=== PATIENT | female | born 1945 | race Caucasian/White ===

== ENCOUNTER 2020-11-24 23:45 | Inpatient (IN) | payer MEDICARE, BC ==
[2020-11-24] MEDS ORDERED: Sodium Chloride 0.9% 10 ML Syringe FLUSH PRN (23:55)
[2020-11-24] MEDS ORDERED: Sodium Chloride 0.9% 1,000 ML IV ONE (23:55)
[2020-11-24] MEDS ORDERED: Albuterol/Ipratropium 3.0-0.5 MG/3 ML Neb Soln NEB ONE (23:58)
[2020-11-24] MEDS ORDERED: Dexamethasone 10 MG/ML SDV IVPUSH ONE (23:58)
[2020-11-24] MEDS ORDERED: Acetaminophen 500 MG Tab PO ONE (23:59)
--- NOTE | 2020-11-25 00:19 | EDM.PDOC ---
ED HPI GENERAL MEDICAL PROBLEM - General Chief Complaint: Respiratory Problem Stated Complaint: SHORTNESS OF BREATH Time Seen by Provider: 11/24/20 23:45 Source of Information: Reports: EMS, Family History Limitations: Reports: Respiratory Distress - History of Present Illness INITIAL COMMENTS - FREE TEXT/NARRATIVE: 75 YO WF PRESENTS TO ER BY EMS IN RESPIRATORY DISTRESS. PT WAS DIAGNOSED WITH COVID-19 10 DAYS AGO AND SINCE THAT TIME SHE HAS BEEN MOSTLY SLEEPING AND COUGHING PER BOYFRIEND. PT HASN'T BEEN EATING OR DRINKING MUCH OVER THIS PERIOD OF TIME. PT WITH SAO2 74% UPON ARRIVAL TO ER ON 10L O2. PT REPORTS SHE DOES NOT WANT ANY CARDIOPULMONARY RESUSCITATION. PT STATES SHE HAS A LIVING WILL AND SHE DOES NOT WANT INTUBATION OR ANY ARTIFICIAL MEAN TO PROLONG HER LIFE. ATTEMPTED CPAP BUT PATIENT COULDN'T TOLERATE SO NRB @15L WAS INITIATED. PT WAS GIVEN DUONEB X2, DECADRON 6MG IV, AND TYLENOL 1000MG PO. PT WAS NOT VACCINATED AND DID NOT RECEIVE MONOCLONAL THERAPY AFTER HER DIAGNOSIS OF COVID. Duration: Day(s): (10), Getting Worse Associated Symptoms: Reports: Fever/Chills, Shortness of Breath, Syncope, Weakness - Related Data Allergies Allergy/AdvReac Type Severity Reaction Status Date / Time codeine Allergy UNKNOWN Verified 11/25/20 00:17 diazepam [From Valium] Allergy Hyperactivi Verified 11/25/20 00:17 ty hydrocodone bitartrate Allergy Difficulty Verified 11/25/20 00:17 [From Vicodin] Breathing morphine Allergy Cannot Verified 11/25/20 00:17 Remember propoxyphene HCl Allergy UNKNOWN Verified 11/25/20 00:17 [From Darvon] Home Meds: Home Meds Acetaminophen [Tylenol] 650 mg PO Q6HR PRN 02/16/13 [History] Aspirin [Halfprin] 81 mg PO ASDIRECTED 02/16/13 [History] Calcium Carbonate/Vitamin D3 [Calcium 500-Vit D3 200 Caplet] 1 each PO BEDTIME 02/16/13 [History] Levothyroxine Sodium [Synthroid] 125 mcg PO QAM 02/16/13 [History] Lisinopril 20 mg PO QPM 02/16/13 [History] Multivitamin [Multi-Vitamin Daily] 1 each PO BEDTIME 02/16/13 [History] Omeprazole [Prilosec] 20 mg PO QPM 02/16/13 [History] amLODIPine [Norvasc] 5 mg PO QAM 02/16/13 [History] Past Medical History HEENT History: Reports: Cataract, Impaired Vision Cardiovascular History: Reports: Heart Murmur, Hypertension, [place] Respiratory History: Reports: None Gastrointestinal History: Reports: GERD Neurological History: Reports: CVA Psychiatric History: Reports: None Endocrine/Metabolic History: Reports: Hypothyroidism Social & Family History - Caffeine Use Caffeine Use: Reports: Coffee, Soda ED ROS GENERAL - Review of Systems Review Of Systems: Comprehensive ROS is negative, except as noted in HPI. Constitutional: Reports: Fever, Chills, Weakness Respiratory: Reports: Shortness of Breath, Cough Cardiovascular: Reports: Dyspnea on Exertion, Edema, Lightheadedness, Orthopnea, PND, Syncope GI/Abdominal: Reports: No Symptoms Neurological: Reports: Weakness ED EXAM, GENERAL - Physical Exam Exam: See Below Exam Limited By: Respiratory Distress General Appearance: Alert, Anxious, Severe Distress, Obese Head: Atraumatic, Normocephalic Neck: Normal Inspection, Supple, Non-Tender, Full Range of Motion Respiratory/Chest: Respiratory Distress, Decreased Breath Sounds, Rhonchi, Accessory Muscle Use, Retractions, Splinting Cardiovascular: Normal Peripheral Pulses, Regular Rate, Rhythm, No Edema, No Gallop, No JVD, No Murmur, No Rub GI/Abdominal: Normal Bowel Sounds, Soft, Non-Tender, No Organomegaly, No Distention, No Mass Extremities: Normal Inspection, Normal Range of Motion, Non-Tender, Normal Capillary Refill, Pedal Edema, Leg Pain, Redness Neurological: Alert, Normal Cognition, No Motor/Sensory Deficits Course - Vital Signs Last Recorded V/S: Last Vital Signs Temp 98.5 F 11/25/20 01:06 Pulse 96 11/25/20 01:02 Resp 44 H 11/25/20 01:02 BP 89/51 L 11/25/20 01:02 Pulse Ox 77 L 11/25/20 01:02 - Orders/Labs/Meds Orders: Active Orders 24 hr Category Date Time Status Patient Status Manage Transfer [TRANSFER] Routine ADT 11/25/20 01:05 Active Patient Status [ADT] Routine ADT 11/25/20 01:06 Active Bedrest Bedside Commode [RC] ASDIRECTED Care 11/25/20 01:06 Active Blood Pressure Mgt: Sepsis [RC] Q15MX2 Care 11/24/20 23:55 Active Cardiac Monitoring [RC] CONTINUOUS Care 11/24/20 23:56 Active Insert Gage Catheter [Insert Urinary Catheter] [OM.PC] Care 11/25/20 00:45 Ordered Q24H Overnight Pulse Oximetry [RC] Click to Edit Care 11/24/20 23:56 Active Oxygen Therapy [RC] PRN Care 11/25/20 01:06 Active Oxygen Therapy, ED [RC] STAT Care 11/24/20 23:56 Active Pulse Oximetry [RC] CONTINUOUS Care 11/25/20 01:07 Active RT Aerosol Therapy [RC] ASDIRECTED Care 11/24/20 23:58 Active Urinary Catheter Assessment [RC] ASDIRECTED Care 11/25/20 00:40 Active VTE/DVT Education [RC] PER UNIT ROUTINE Care 11/25/20 01:06 Active Vital Signs [RC] Q4H Care 11/25/20 01:06 Active Nothing per Oral Now Diet [DIET] Diet 11/25/20 Breakfast Active Chest 1V Frontal [CR] Stat Exams 11/24/20 23:55 Ordered CULTURE BLOOD [BC] Stat Lab 11/24/20 23:55 Received Acetaminophen [Tylenol] Med 11/25/20 01:06 Ordered 650 mg RECTAL Q4H PRN Dextrose 5%-1/2 Normal Saline @ 125 MLS/HR(1000ml) Med 11/25/20 01:15 Ordered Dextrose 5%-0.45% NaCl [Dextrose 5%-1/2 NS] 1,000 ml IV ASDIRECTED LORazepam [Ativan] Med 11/25/20 01:06 Ordered 1 mg IV Q1H PRN Sodium Chloride 0.9% [Normal Saline] 1,000 ml Med 11/25/20 00:53 Active IV ASDIRECTED Sodium Chloride 0.9% [Saline Flush] Med 11/24/20 23:55 Active 10 ml FLUSH Q8HR PRN Blood Culture x2 Reflex Set [OM.PC] Stat Oth 11/24/20 23:55 Ordered Isolation [COMM] Routine Oth 11/25/20 00:18 Ordered Pulse Oximetry Continuous Monitoring [OM.PC] Routine Oth 11/24/20 23:55 Ordered Saline Lock Insert [OM.PC] Stat Oth 11/24/20 23:55 Ordered Severe Sepsis Onset Time [OM.PC] Stat Oth 11/24/20 23:55 Ordered Resuscitation Status Routine Resus Stat 11/25/20 01:06 Ordered EKG 12 Lead [EK] Stat Ther 11/24/20 23:55 Ordered Medication Orders Acetaminophen (Acetaminophen 650 Mg Supp) 650 mg RECTAL Q4H PRN PRN Reason: Pain (mild 1-3) Sodium Chloride (Normal Saline) 1,000 mls @ 150 mls/hr IV ASDIRECTED ONE Stop: 11/25/20 07:27 Last Admin: 11/25/20 01:00 Dose: 150 mls/hr Documented by: JUAN MIGUEL Dextrose/Sodium Chloride (Dextrose 5%-1/2 Ns) 1,000 mls @ 125 mls/hr IV ASDIR ECTED AIDE Lorazepam (Lorazepam 2 Mg/Ml Sdv) 1 mg IV Q1H PRN PRN Reason: Nausea/Vomiting Sodium Chloride (Sodium Chloride 0.9% 10 Ml Syringe) 10 ml FLUSH Q8HR PRN PRN Reason: keep vein open Labs: Laboratory Tests 11/25/20 11/25/20 11/25/20 Range/Units 00:10 00:10 00:10 WBC 9.90 (5.00-10.00) 10^3/uL RBC 3.54 L (3.80-5.50) 10^6/uL Hgb 10.7 L (12.0-16.0) g/dL Hct 33.4 L (37.0-47.0) % MCV 94.4 H D (82.0-92.0) fL MCH 30.2 (27.0-31.0) pg MCHC 32.0 (32.0-36.0) g/dL RDW 12.7 (11.5-14.5) % Plt Count 378 (150-400) 10^3/uL MPV 8.9 (7.4-10.4) fL Add Manual Diff Yes Neutrophils % (Manual) 69 (50-70) % Band Neutrophils % 1 L (4-12) % Lymphocytes % (Manual) 21 (20-40) % Atypical Lymphs % 9 Platelet Estimate Increased D-Dimer, Quantitative (<400) ng/mL Sodium 141 (136-145) mmol/L Potassium 4.8 (3.5-5.1) mmol/L Chloride 104 (98-107) mmol/L Carbon Dioxide 22.0 (21.0-32.0) mmol/L Anion Gap 19.8 H (5-15) mmol/L BUN 63 H* (7-18) mg/dL Creatinine 2.67 H (0.51-1.17) mg/dL Est Cr Clr Drug Dosing 13.53 mL/min Estimated GFR (MDRD) 17 mL/min Glucose 125 (70-140) mg/dL Lactic Acid 1.4 (0.4-2.0) mmol/L Calcium 8.7 (8.7-10.3) mg/dL Total Bilirubin 0.7 (0.2-1.0) mg/dL AST 106 H (15-37) U/L ALT 56 (14-63) U/L Alkaline Phosphatase 122 H (46-116) U/L Troponin I High Sens 27.000 (0-51.000) pg/mL B-Natriuretic Peptide 105 H (0-100) pg/mL Total Protein 7.7 (6.4-8.2) g/dL Albumin 2.66 L (3.40-5.00) g/dL Specimen Type Urine Color (YELLOW) Urine Appearance (CLEAR) Urine pH (5.0-9.0) Ur Specific Converse (1.005-1.030) Urine Protein (NEGATIVE) mg/dL Urine Glucose (UA) (NEGATIVE) mg/dL Urine Ketones (NEGATIVE) mg/dL Urine Occult Blood (NEGATIVE) Urine Nitrite (NEGATIVE) Urine Bilirubin (NEGATIVE) Urine Urobilinogen (0.2-1.0) E.U./dL Ur Leukocyte Esterase (NEGATIVE) Urine RBC (0-5) /HPF Urine WBC (0-5) /HPF Ur Epithelial Cells /LPF Amorphous Sediment (0/HPF) /HPF Urine Bacteria (NONE TO FEW) /HPF Granular Casts (Auto) Urine Mucus (NEGATIVE) /LPF 11/25/20 11/25/20 Range/Units 00:10 00:40 WBC (5.00-10.00) 10^3/uL RBC (3.80-5.50) 10^6/uL Hgb (12.0-16.0) g/dL Hct (37.0-47.0) % MCV (82.0-92.0) fL MCH (27.0-31.0) pg MCHC (32.0-36.0) g/dL RDW (11.5-14.5) % Plt Count (150-400) 10^3/uL MPV (7.4-10.4) fL Add Manual Diff Neutrophils % (Manual) (50-70) % Band Neutrophils % (4-12) % Lymphocytes % (Manual) (20-40) % Atypical Lymphs % Platelet Estimate D-Dimer, Quantitative 2530 H (<400) ng/mL Sodium (136-145) mmol/L Potassium (3.5-5.1) mmol/L Chloride (98-107) mmol/L Carbon Dioxide (21.0-32.0) mmol/L Anion Gap (5-15) mmol/L BUN (7-18) mg/dL Creatinine (0.51-1.17) mg/dL Est Cr Clr Drug Dosing mL/min Estimated GFR (MDRD) mL/min Glucose (70-140) mg/dL Lactic Acid (0.4-2.0) mmol/L Calcium (8.7-10.3) mg/dL Total Bilirubin (0.2-1.0) mg/dL AST (15-37) U/L ALT (14-63) U/L Alkaline Phosphatase (46-116) U/L Troponin I High Sens (0-51.000) pg/mL B-Natriuretic Peptide (0-100) pg/mL Total Protein (6.4-8.2) g/dL Albumin (3.40-5.00) g/dL Specimen Type Urincath Urine Color Yellow (YELLOW) Urine Appearance Cloudy H (CLEAR) Urine pH 5.0 (5.0-9.0) Ur Specific Converse 1.025 (1.005-1.030) Urine Protein 100 H (NEGATIVE) mg/dL Urine Glucose (UA) Negative (NEGATIVE) mg/dL Urine Ketones Negative (NEGATIVE) mg/dL Urine Occult Blood Small H (NEGATIVE) Urine Nitrite Negative (NEGATIVE) Urine Bilirubin Small H (NEGATIVE) Urine Urobilinogen 1.0 (0.2-1.0) E.U./dL Ur Leukocyte Esterase Negative (NEGATIVE) Urine RBC 0-5 (0-5) /HPF Urine WBC 0-5 (0-5) /HPF Ur Epithelial Cells Moderate H /LPF Amorphous Sediment Few (0/HPF) /HPF Urine Bacteria Rare (NONE TO FEW) /HPF Granular Casts (Auto) Occasional Urine Mucus Rare H (NEGATIVE) /LPF Meds: Medications Generic Name Dose Route Start Last Admin Trade Name Henrry PRN Reason Stop Dose Admin Acetaminophen 650 mg 11/25/20 01:06 Acetaminophen 650 Mg Supp RECTAL Q4H PRN Pain (mild 1-3) Sodium Chloride 1,000 mls @ 150 mls/hr 11/25/20 00:53 11/25/20 01:00 Normal Saline IV 11/25/20 07:27 150 mls/hr ASDIRECTED ONE Administration Dextrose/Sodium Chloride 1,000 mls @ 125 mls/hr 11/25/20 01:15 Dextrose 5%-1/2 Ns IV ASDIRECTED AIDE Lorazepam 1 mg 11/25/20 01:06 Lorazepam 2 Mg/Ml Sdv IV Q1H PRN Nausea/Vomiting Sodium Chloride 10 ml 11/24/20 23:55 Sodium Chloride 0.9% 10 Ml Syringe FLUSH Q8HR PRN keep vein open Discontinued Medications Generic Name Dose Route Start Last Admin Trade Name Henrry PRN Reason Stop Dose Admin Acetaminophen 1,000 mg 11/24/20 23:59 11/25/20 00:05 Acetaminophen 500 Mg Tab PO 11/25/20 00:00 500 mg ONETIME ONE Administration Acetaminophen 500 mg 11/25/20 00:42 11/25/20 00:44 Acetaminophen 500 Mg Tab PO 11/25/20 00:43 500 mg ONETIME ONE Administration Albuterol/Ipratropium 3 ml 11/24/20 23:58 11/24/20 23:50 Albuterol/Ipratropium 3.0-0.5 Mg/3 Ml Neb Soln NEB 11/24/20 23:59 3 ml ONETIME ONE Administration Albuterol/Ipratropium 3 ml 11/25/20 01:06 Albuterol/Ipratropium 3.0-0.5 Mg/3 Ml Neb Soln NEB Q4H PRN Shortness Of Breath/wheezing Dexamethasone 6 mg 11/24/20 23:58 11/25/20 00:05 Dexamethasone 10 Mg/Ml Sdv IVPUSH 11/24/20 23:59 6 mg ONETIME ONE Administration Sodium Chloride 1,000 mls @ 1,000 mls/hr 11/24/20 23:55 11/25/20 00:52 Normal Saline IV 11/25/20 00:54 Not Given BOLUS ONE Protocol Sodium Chloride 1,000 mls @ 999 mls/hr 11/25/20 00:48 11/25/20 00:53 Normal Saline IV 11/25/20 01:48 Not Given .BOLUS ONE Lorazepam 1 mg 11/25/20 00:53 11/25/20 01:00 Lorazepam 2 Mg/Ml Sdv IVPUSH 11/25/20 00:54 1 mg ONETIME ONE Administration - Radiology Interpretation Free Text/Narrative:: CXR- MULTIFOCAL BILATERAL PNEUMONIA - Re-Assessments/Exams Free Text/Narrative Re-Assessment/Exam: 11/25/20 01:02 PT ASKED TO GO HOME MULTIPLE TIMES. PT'S BOYFRIEND OF 23 YEARS (KAIT) WAS AT BEDSIDE. PT AND SPOUSE UNDERSTAND SHE NEEDS TO REMAIN IN HOSPITAL FOR COMFORT CARE. WILL ADMIT TO MEDICINE FOR PALLIATIVE CARE AND COMFORT ONLY MEASURES Departure - Departure Time of Disposition: 01:03 Disposition: Admitted As Inpatient 65 Condition: Critical Clinical Impression: Pneumonia due to COVID-19 virus Respiratory failure Qualifiers: Chronicity: acute Respiratory failure complication: hypoxia Qualified Code(s): J96.01 - Acute respiratory failure with hypoxia - Discharge Information Referrals: Fuentes Cisse PA [Primary Care Provider] - Forms: ED Department Discharge Sepsis Event Note (ED) - Focused Exam Vital Signs: Vital Signs Temp Temp Pulse Resp BP Pulse Ox Pulse Ox 11/25/20 01:06 98.5 F 11/25/20 01:02 96 44 H 89/51 L 77 L 11/25/20 00:47 89 39 H 105/49 L 75 L 71 L 11/25/20 00:35 98.5 F 11/25/20 00:30 90 44 H 120/91 H 70 L 11/25/20 00:15 96 40 H 123/48 L 68 L 11/25/20 00:05 72 L 11/25/20 00:00 93 43 H 118/54 L 74 L 11/24/20 23:45 100.2 F 99 40 H 149/72 H 68 L - My Orders Last 24 Hours: My Active Orders 11/24/20 23:55 Blood Pressure Mgt: Sepsis [RC] Q15MX2 Chest 1V Frontal [CR] Stat CULTURE BLOOD [BC] Stat Sodium Chloride 0.9% [Saline Flush] 10 ml FLUSH Q8HR PRN Blood Culture x2 Reflex Set [OM.PC] Stat Pulse Oximetry Continuous Monitoring [OM.PC] Routine Saline Lock Insert [OM.PC] Stat Severe Sepsis Onset Time [OM.PC] Stat EKG 12 Lead [EK] Stat 11/24/20 23:56 Cardiac Monitoring [RC] CONTINUOUS Overnight Pulse Oximetry [RC] Click to Edit Oxygen Therapy, ED [RC] STAT 11/24/20 23:58 RT Aerosol Therapy [RC] ASDIRECTED 11/25/20 00:18 Isolation [COMM] Routine 11/25/20 00:40 Urinary Catheter Assessment [RC] ASDIRECTED 11/25/20 00:45 Insert Gage Catheter [Insert Urinary Catheter] [OM.PC] Q24H 11/25/20 00:53 Sodium Chloride 0.9% [Normal Saline] 1,000 ml IV ASDIRECTED 11/25/20 01:05 Patient Status Manage Transfer [TRANSFER] Routine 11/25/20 01:06 Patient Status [ADT] Routine Bedrest Bedside Commode [RC] ASDIRECTED Oxygen Therapy [RC] PRN VTE/DVT Education [RC] PER UNIT ROUTINE Vital Signs [RC] Q4H Acetaminophen [Tylenol] 650 mg RECTAL Q4H PRN LORazepam [Ativan] 1 mg IV Q1H PRN Resuscitation Status Routine 11/25/20 01:07 Pulse Oximetry [RC] CONTINUOUS 11/25/20 01:15 Dextrose 5%-1/2 Normal Saline @ 125 MLS/HR(1000ml) Dextrose 5%-0.45% NaCl [Dextrose 5%-1/2 NS] 1,000 ml IV ASDIRECTED 11/25/20 Breakfast Nothing per Oral Now Diet [DIET] - Assessment/Plan Last 24 Hours: My Active Orders 11/24/20 23:55 Blood Pressure Mgt: Sepsis [RC] Q15MX2 Chest 1V Frontal [CR] Stat CULTURE BLOOD [BC] Stat Sodium Chloride 0.9% [Saline Flush] 10 ml FLUSH Q8HR PRN Blood Culture x2 Reflex Set [OM.PC] Stat Pulse Oximetry Continuous Monitoring [OM.PC] Routine Saline Lock Insert [OM.PC] Stat Severe Sepsis Onset Time [OM.PC] Stat EKG 12 Lead [EK] Stat 11/24/20 23:56 Cardiac Monitoring [RC] CONTINUOUS Overnight Pulse Oximetry [RC] Click to Edit Oxygen Therapy, ED [RC] STAT 11/24/20 23:58 RT Aerosol Therapy [RC] ASDIRECTED 11/25/20 00:18 Isolation [COMM] Routine 11/25/20 00:40 Urinary Catheter Assessment [RC] ASDIRECTED 11/25/20 00:45 Insert Gage Catheter [Insert Urinary Catheter] [OM.PC] Q24H 11/25/20 00:53 Sodium Chloride 0.9% [Normal Saline] 1,000 ml IV ASDIRECTED 11/25/20 01:05 Patient Status Manage Transfer [TRANSFER] Routine 11/25/20 01:06 Patient Status [ADT] Routine Bedrest Bedside Commode [RC] ASDIRECTED Oxygen Therapy [RC] PRN VTE/DVT Education [RC] PER UNIT ROUTINE Vital Signs [RC] Q4H Acetaminophen [Tylenol] 650 mg RECTAL Q4H PRN LORazepam [Ativan] 1 mg IV Q1H PRN Resuscitation Status Routine 11/25/20 01:07 Pulse Oximetry [RC] CONTINUOUS 11/25/20 01:15 Dextrose 5%-1/2 Normal Saline @ 125 MLS/HR(1000ml) Dextrose 5%-0.45% NaCl [Dextrose 5%-1/2 NS] 1,000 ml IV ASDIRECTED 11/25/20 Breakfast Nothing per Oral Now Diet [DIET] Assessment:: 1. RESPIRATORY FAILURE 2. COMFORT/PALLIATIVE CARE 3. DEHYDRATION Plan: 1. ADMIT TO MEDICINE- DR SHERMAN CONLEY @1300 2. PALLIATIVE CARE 3. O2 SUPPORT NRB 15L 4. IVF D51/2NS @125CC/HR 5. ATIVAN FOR COMFORT CARE NEEDED
[2020-11-25 00:35] LABS: ANION GAP 19.8 mmol/L (5-15)
[2020-11-25] MEDS ORDERED: Acetaminophen 500 MG Tab PO ONE (00:42)
[2020-11-25] MEDS ORDERED: Sodium Chloride 0.9% 1,000 ML IV ONE ×2 (00:48→00:53)
[2020-11-25] MEDS ORDERED: LORazepam 2 MG/ML SDV IVPUSH ONE (00:53)
[2020-11-25] MEDS ORDERED: Acetaminophen 650 MG Supp RECTAL PRN (01:06)
[2020-11-25] MEDS ORDERED: Albuterol/Ipratropium 3.0-0.5 MG/3 ML Neb Soln NEB PRN (01:06)
[2020-11-25] MEDS ORDERED: Dextrose 5%-0.45% NaCl 1,000 ML IV SCH (01:15)
[2020-11-25 02:03] VITALS: BP 114/33; PULSE 84
[2020-11-25] MEDS: LORazepam 2 MG/ML SDV IV PRN ×3 (02:05→04:13)
[2020-11-25] MEDS: LORazepam 2 MG/ML SDV IVPUSH PRN ×13 (05:20→23:04)
--- NOTE | 2020-11-25 08:03 | PCM.PN ---
- General Info Date of Service: 11/25/20 Subjective Update: PT IN RESPIRATORY FAILURE WITH SHALLOW BREATHING. 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 PT IS UNRESPONSIVE AND APPEARS COMFORTABLE. FAMILY HAS NO CONCERNS AT THIS TIME. CHILDREN HAVE BEEN NOTIFIED THIS AM AFTER BEING UNABLE TO REACH THEM ALL NIGHT Functional Status: Reports: Pain Controlled - Review of Systems General: Reports: Other (UNRESPONSIVE, UNABLE TO OBTAIN BUT APPEARS IN NAD) - Patient Data Vitals - Most Recent: Last Vital Signs Temp 98.5 F 11/25/20 01:06 Pulse 84 11/25/20 01:30 Resp 35 H 11/25/20 01:30 BP 114/33 L 11/25/20 01:30 Pulse Ox 77 L 11/25/20 01:55 Weight - Most Recent: 250 lb I&O - Last 24 Hours: Intake & Output 11/24/20 11/25/20 11/25/20 22:59 06:59 14:59 Output Total 50 Balance -50 Lab Results Last 24 Hours: Laboratory Results - last 24 hr 11/25/20 11/25/20 11/25/20 Range/Units 00:10 00:10 00:10 WBC 9.90 (5.00-10.00) 10^3/uL RBC 3.54 L (3.80-5.50) 10^6/uL Hgb 10.7 L (12.0-16.0) g/dL Hct 33.4 L (37.0-47.0) % MCV 94.4 H D (82.0-92.0) fL MCH 30.2 (27.0-31.0) pg MCHC 32.0 (32.0-36.0) g/dL RDW 12.7 (11.5-14.5) % Plt Count 378 (150-400) 10^3/uL MPV 8.9 (7.4-10.4) fL Add Manual Diff Yes Neutrophils % (Manual) 69 (50-70) % Band Neutrophils % 1 L (4-12) % Lymphocytes % (Manual) 21 (20-40) % Atypical Lymphs % 9 Platelet Estimate Increased D-Dimer, Quantitative (<400) ng/mL Sodium 141 (136-145) mmol/L Potassium 4.8 (3.5-5.1) mmol/L Chloride 104 (98-107) mmol/L Carbon Dioxide 22.0 (21.0-32.0) mmol/L Anion Gap 19.8 H (5-15) mmol/L BUN 63 H* (7-18) mg/dL Creatinine 2.67 H (0.51-1.17) mg/dL Est Cr Clr Drug Dosing 13.53 mL/min Estimated GFR (MDRD) 17 mL/min Glucose 125 (70-140) mg/dL Lactic Acid 1.4 (0.4-2.0) mmol/L Calcium 8.7 (8.7-10.3) mg/dL Total Bilirubin 0.7 (0.2-1.0) mg/dL AST 106 H (15-37) U/L ALT 56 (14-63) U/L Alkaline Phosphatase 122 H (46-116) U/L Troponin I High Sens 27.000 (0-51.000) pg/mL B-Natriuretic Peptide 105 H (0-100) pg/mL Total Protein 7.7 (6.4-8.2) g/dL Albumin 2.66 L (3.40-5.00) g/dL Specimen Type Urine Color (YELLOW) Urine Appearance (CLEAR) Urine pH (5.0-9.0) Ur Specific Distant (1.005-1.030) Urine Protein (NEGATIVE) mg/dL Urine Glucose (UA) (NEGATIVE) mg/dL Urine Ketones (NEGATIVE) mg/dL Urine Occult Blood (NEGATIVE) Urine Nitrite (NEGATIVE) Urine Bilirubin (NEGATIVE) Urine Urobilinogen (0.2-1.0) E.U./dL Ur Leukocyte Esterase (NEGATIVE) Urine RBC (0-5) /HPF Urine WBC (0-5) /HPF Ur Epithelial Cells /LPF Amorphous Sediment (0/HPF) /HPF Urine Bacteria (NONE TO FEW) /HPF Granular Casts (Auto) Urine Mucus (NEGATIVE) /LPF 11/25/20 11/25/20 Range/Units 00:10 00:40 WBC (5.00-10.00) 10^3/uL RBC (3.80-5.50) 10^6/uL Hgb (12.0-16.0) g/dL Hct (37.0-47.0) % MCV (82.0-92.0) fL MCH (27.0-31.0) pg MCHC (32.0-36.0) g/dL RDW (11.5-14.5) % Plt Count (150-400) 10^3/uL MPV (7.4-10.4) fL Add Manual Diff Neutrophils % (Manual) (50-70) % Band Neutrophils % (4-12) % Lymphocytes % (Manual) (20-40) % Atypical Lymphs % Platelet Estimate D-Dimer, Quantitative 2530 H (<400) ng/mL Sodium (136-145) mmol/L Potassium (3.5-5.1) mmol/L Chloride (98-107) mmol/L Carbon Dioxide (21.0-32.0) mmol/L Anion Gap (5-15) mmol/L BUN (7-18) mg/dL Creatinine (0.51-1.17) mg/dL Est Cr Clr Drug Dosing mL/min Estimated GFR (MDRD) mL/min Glucose (70-140) mg/dL Lactic Acid (0.4-2.0) mmol/L Calcium (8.7-10.3) mg/dL Total Bilirubin (0.2-1.0) mg/dL AST (15-37) U/L ALT (14-63) U/L Alkaline Phosphatase (46-116) U/L Troponin I High Sens (0-51.000) pg/mL B-Natriuretic Peptide (0-100) pg/mL Total Protein (6.4-8.2) g/dL Albumin (3.40-5.00) g/dL Specimen Type Urincath Urine Color Yellow (YELLOW) Urine Appearance Cloudy H (CLEAR) Urine pH 5.0 (5.0-9.0) Ur Specific Distant 1.025 (1.005-1.030) Urine Protein 100 H (NEGATIVE) mg/dL Urine Glucose (UA) Negative (NEGATIVE) mg/dL Urine Ketones Negative (NEGATIVE) mg/dL Urine Occult Blood Small H (NEGATIVE) Urine Nitrite Negative (NEGATIVE) Urine Bilirubin Small H (NEGATIVE) Urine Urobilinogen 1.0 (0.2-1.0) E.U./dL Ur Leukocyte Esterase Negative (NEGATIVE) Urine RBC 0-5 (0-5) /HPF Urine WBC 0-5 (0-5) /HPF Ur Epithelial Cells Moderate H /LPF Amorphous Sediment Few (0/HPF) /HPF Urine Bacteria Rare (NONE TO FEW) /HPF Granular Casts (Auto) Occasional Urine Mucus Rare H (NEGATIVE) /LPF Med Orders - Current: Current Medications Acetaminophen (Acetaminophen 650 Mg Supp) 650 mg RECTAL Q4H PRN PRN Reason: Pain (mild 1-3) Lorazepam (Lorazepam 2 Mg/Ml Sdv) 2 mg IVPUSH Q1H PRN PRN Reason: Other Last Admin: 11/25/20 06:28 Dose: 2 mg Documented by: Discontinued Medications Acetaminophen (Acetaminophen 500 Mg Tab) 1,000 mg PO ONETIME ONE Stop: 11/25/20 00:00 Last Admin: 11/25/20 00:05 Dose: 500 mg Documented by: Acetaminophen (Acetaminophen 500 Mg Tab) 500 mg PO ONETIME ONE Stop: 11/25/20 00:43 Last Admin: 11/25/20 00:44 Dose: 500 mg Documented by: Albuterol/Ipratropium (Albuterol/Ipratropium 3.0-0.5 Mg/3 Ml Neb Soln) 3 ml NEB ONETIME ONE Stop: 11/24/20 23:59 Last Admin: 11/24/20 23:50 Dose: 3 ml Documented by: Albuterol/Ipratropium (Albuterol/Ipratropium 3.0-0.5 Mg/3 Ml Neb Soln) 3 ml NEB Q4H PRN PRN Reason: Shortness Of Breath/wheezing Dexamethasone (Dexamethasone 10 Mg/Ml Sdv) 6 mg IVPUSH ONETIME ONE Stop: 11/24/20 23:59 Last Admin: 11/25/20 00:05 Dose: 6 mg Documented by: Sodium Chloride (Normal Saline) 1,000 mls @ 1,000 mls/hr IV BOLUS ONE; Protocol Stop: 11/25/20 00:54 Last Admin: 11/25/20 00:52 Dose: Not Given Documented by: Sodium Chloride (Normal Saline) 1,000 mls @ 999 mls/hr IV .BOLUS ONE Stop: 11/25/20 01:48 Last Admin: 11/25/20 00:53 Dose: Not Given Documented by: Sodium Chloride (Normal Saline) 1,000 mls @ 150 mls/hr IV ASDIRECTED ONE Stop: 11/25/20 07:27 Last Infusion: 11/25/20 01:15 Dose: 500 mls/hr Documented by: Dextrose/Sodium Chloride (Dextrose 5%-1/2 Ns) 1,000 mls @ 125 mls/hr IV ASDIRECTED AIDE Last Admin: 11/25/20 03:08 Dose: 125 mls/hr Documented by: Lorazepam (Lorazepam 2 Mg/Ml Sdv) 1 mg IVPUSH ONETIME ONE Stop: 11/25/20 00:54 Last Admin: 11/25/20 01:00 Dose: 1 mg Documented by: Lorazepam (Lorazepam 2 Mg/Ml Sdv) 1 mg IV Q1H PRN PRN Reason: Nausea/Vomiting Last Admin: 11/25/20 04:13 Dose: 1 mg Documented by: Sodium Chloride (Sodium Chloride 0.9% 10 Ml Syringe) 10 ml FLUSH Q8HR PRN PRN Reason: keep vein open - Exam Quality Assessment: Supplemental Oxygen Urinary Catheter Total Time: 0Days 0Hours General: Obtunded HEENT: Pupils Equal Neck: Supple Lungs: Other (RESPIRATORY FAILURE) Cardiovascular: Regular Rate, Regular Rhythm GI/Abdominal Exam: Normal Bowel Sounds, Soft, No Organomegaly, No Distention, No Mass, Pelvis Stable Skin: Warm, Intact, Moist Neurological: Other (OBTUNDED IN NAD) - Patient Data Lab Results Last 24 hrs: Laboratory Results - last 24 hr 11/25/20 11/25/20 11/25/20 Range/Units 00:10 00:10 00:10 WBC 9.90 (5.00-10.00) 10^3/uL RBC 3.54 L (3.80-5.50) 10^6/uL Hgb 10.7 L (12.0-16.0) g/dL Hct 33.4 L (37.0-47.0) % MCV 94.4 H D (82.0-92.0) fL MCH 30.2 (27.0-31.0) pg MCHC 32.0 (32.0-36.0) g/dL RDW 12.7 (11.5-14.5) % Plt Count 378 (150-400) 10^3/uL MPV 8.9 (7.4-10.4) fL Add Manual Diff Yes Neutrophils % (Manual) 69 (50-70) % Band Neutrophils % 1 L (4-12) % Lymphocytes % (Manual) 21 (20-40) % Atypical Lymphs % 9 Platelet Estimate Increased D-Dimer, Quantitative (<400) ng/mL Sodium 141 (136-145) mmol/L Potassium 4.8 (3.5-5.1) mmol/L Chloride 104 (98-107) mmol/L Carbon Dioxide 22.0 (21.0-32.0) mmol/L Anion Gap 19.8 H (5-15) mmol/L BUN 63 H* (7-18) mg/dL Creatinine 2.67 H (0.51-1.17) mg/dL Est Cr Clr Drug Dosing 13.53 mL/min Estimated GFR (MDRD) 17 mL/min Glucose 125 (70-140) mg/dL Lactic Acid 1.4 (0.4-2.0) mmol/L Calcium 8.7 (8.7-10.3) mg/dL Total Bilirubin 0.7 (0.2-1.0) mg/dL AST 106 H (15-37) U/L ALT 56 (14-63) U/L Alkaline Phosphatase 122 H (46-116) U/L Troponin I High Sens 27.000 (0-51.000) pg/mL B-Natriuretic Peptide 105 H (0-100) pg/mL Total Protein 7.7 (6.4-8.2) g/dL Albumin 2.66 L (3.40-5.00) g/dL Specimen Type Urine Color (YELLOW) Urine Appearance (CLEAR) Urine pH (5.0-9.0) Ur Specific Distant (1.005-1.030) Urine Protein (NEGATIVE) mg/dL Urine Glucose (UA) (NEGATIVE) mg/dL Urine Ketones (NEGATIVE) mg/dL Urine Occult Blood (NEGATIVE) Urine Nitrite (NEGATIVE) Urine Bilirubin (NEGATIVE) Urine Urobilinogen (0.2-1.0) E.U./dL Ur Leukocyte Esterase (NEGATIVE) Urine RBC (0-5) /HPF Urine WBC (0-5) /HPF Ur Epithelial Cells /LPF Amorphous Sediment (0/HPF) /HPF Urine Bacteria (NONE TO FEW) /HPF Granular Casts (Auto) Urine Mucus (NEGATIVE) /LPF 11/25/20 11/25/20 Range/Units 00:10 00:40 WBC (5.00-10.00) 10^3/uL RBC (3.80-5.50) 10^6/uL Hgb (12.0-16.0) g/dL Hct (37.0-47.0) % MCV (82.0-92.0) fL MCH (27.0-31.0) pg MCHC (32.0-36.0) g/dL RDW (11.5-14.5) % Plt Count (150-400) 10^3/uL MPV (7.4-10.4) fL Add Manual Diff Neutrophils % (Manual) (50-70) % Band Neutrophils % (4-12) % Lymphocytes % (Manual) (20-40) % Atypical Lymphs % Platelet Estimate D-Dimer, Quantitative 2530 H (<400) ng/mL Sodium (136-145) mmol/L Potassium (3.5-5.1) mmol/L Chloride (98-107) mmol/L Carbon Dioxide (21.0-32.0) mmol/L Anion Gap (5-15) mmol/L BUN (7-18) mg/dL Creatinine (0.51-1.17) mg/dL Est Cr Clr Drug Dosing mL/min Estimated GFR (MDRD) mL/min Glucose (70-140) mg/dL Lactic Acid (0.4-2.0) mmol/L Calcium (8.7-10.3) mg/dL Total Bilirubin (0.2-1.0) mg/dL AST (15-37) U/L ALT (14-63) U/L Alkaline Phosphatase (46-116) U/L Troponin I High Sens (0-51.000) pg/mL B-Natriuretic Peptide (0-100) pg/mL Total Protein (6.4-8.2) g/dL Albumin (3.40-5.00) g/dL Specimen Type Urincath Urine Color Yellow (YELLOW) Urine Appearance Cloudy H (CLEAR) Urine pH 5.0 (5.0-9.0) Ur Specific Distant 1.025 (1.005-1.030) Urine Protein 100 H (NEGATIVE) mg/dL Urine Glucose (UA) Negative (NEGATIVE) mg/dL Urine Ketones Negative (NEGATIVE) mg/dL Urine Occult Blood Small H (NEGATIVE) Urine Nitrite Negative (NEGATIVE) Urine Bilirubin Small H (NEGATIVE) Urine Urobilinogen 1.0 (0.2-1.0) E.U./dL Ur Leukocyte Esterase Negative (NEGATIVE) Urine RBC 0-5 (0-5) /HPF Urine WBC 0-5 (0-5) /HPF Ur Epithelial Cells Moderate H /LPF Amorphous Sediment Few (0/HPF) /HPF Urine Bacteria Rare (NONE TO FEW) /HPF Granular Casts (Auto) Occasional Urine Mucus Rare H (NEGATIVE) /LPF Result Diagrams: 11/25/20 00:10 11/25/20 00:10 Sepsis Event Note - Evaluation Sepsis Screening Result: Possible Sepsis Risk - Focused Exam Vital Signs: Vital Signs Temp Temp Pulse Resp BP Pulse Ox Pulse Ox 11/25/20 01:55 77 L 11/25/20 01:51 77 L 11/25/20 01:30 84 35 H 114/33 L 67 L 11/25/20 01:15 88 32 H 104/28 L 72 L 11/25/20 01:06 98.5 F 11/25/20 01:02 96 44 H 89/51 L 77 L 11/25/20 00:47 89 39 H 105/49 L 75 L 71 L 11/25/20 00:35 98.5 F 11/25/20 00:30 90 44 H 120/91 H 70 L 11/25/20 00:15 96 40 H 123/48 L 68 L 11/25/20 00:05 72 L 11/25/20 00:00 93 43 H 118/54 L 74 L 11/24/20 23:45 100.2 F 99 40 H 149/72 H 68 L - Problem List Review Problem List Initiated/Reviewed/Updated: Yes - My Orders Last 24 Hours: My Active Orders 11/24/20 23:55 Chest 1V Frontal [CR] Stat CULTURE BLOOD [BC] Stat EKG 12 Lead [EK] Stat 11/25/20 00:40 Urinary Catheter Assessment [RC] 11/25/20 01:06 Patient Status [ADT] Routine Bedrest Bedside Commode [RC] ASDIRECTED Oxygen Therapy [RC] PRN Vital Signs [RC] .PRN Acetaminophen [Tylenol] 650 mg RECTAL Q4H PRN Resuscitation Status Routine 11/25/20 01:07 Pulse Oximetry [RC] CONTINUOUS 11/25/20 04:34 LORazepam [Ativan] 2 mg IVPUSH Q1H PRN 11/25/20 Breakfast Nothing per Oral Now Diet [DIET] - Assessment Assessment:: 1. RESPIRATORY FAILURE SECONDARY TO COVID PNEUMONIA 2. DNR/DNI/COMFORT CARE - Plan Plan:: 1. COMFORT CARE MEASURES 2. ATIVAN 2-4MG Q1 HOUR NEEDED FOR AGITATION 3. FAMILIES CONCERNS ADDRESSED
--- NOTE | 2020-11-25 08:09 | CR ---
[id number] RAD/RAD Chest PA or AP 1V EXAM: SINGLE VIEW CHEST. INDICATION: SHORTNESS OF BREATH COMPARISON: CORRELATION IS MADE WITH NOVEMBER 20, 2020 FINDINGS: Extensive bilateral infiltrates have worsened The cardiac silhouette is stable IMPRESSION: WORSENING PNEUMONIA Gibson Ramos MD 11/25/20 0860 Thank you for allowing us to participate in the care of your patient.
[2020-11-25] MEDS: HYDROmorphone 1 MG/ML Syringe IVPUSH PRN (15:12)
[2020-11-26] MEDS: LORazepam 2 MG/ML SDV IVPUSH PRN ×6 (00:01→07:29)
[2020-11-26] MEDS: Glycopyrrolate 0.2 MG/ML SDV IVPUSH PRN ×2 (01:44→05:46)
[2020-11-26] MEDS: HYDROmorphone 1 MG/ML Syringe IVPUSH PRN (03:27)
--- NOTE | 2020-11-26 10:25 | PCM.DCSUM1 ---
Discharge Summary - Hospital Course Free Text/Narrative:: Admission Date: 11/24/2020 Discharge Date: 11/26/2020 Admission Diagnosis: COVID pneumonia in hypoxemic respiratory failure Discharge Diagnosis: due to COVID pneumonia and hypoxemic respiratory failure Hospital Summary: Norma was admitted through the ER on 11/24 with worsening SOB after a diagnosis of COVID approximately 10 days prior to admission. She was satting 74% on 10L via NC. She was then put on 15L via non-rebreather with really no improvement in her O2 sats. She did not tolerate CPAP and BiPAP machine was non-functional and therefore not able to be used. She had advanced directives for DNR/DNI and after discussion with the family she was admitted for comfort cares. She was initiated on morphine and hydromorphone for comfort. She peacefully with her SO and family around her bedside at 0938 on 11/26. Her PCP was Fuentes Cisse and so I have no information on her PMH. I saw her on rounds this AM and she was resting peacefully. Diagnosis: Stroke: No Modified [place] Scale: Modified [place] Scale Score: 6 - Discharge Data Discharge Date: 11/26/20 Discharge Disposition: 20 Preliminary Cause of *Q: Respiratory Failure Condition: - Referral to Home Health Primary Care Physician: XIOMARA Merida - Discharge Plan Home Medications: Home Meds Acetaminophen [Tylenol] 650 mg PO Q6HR PRN 02/16/13 [History] Aspirin [Halfprin] 81 mg PO ASDIRECTED 02/16/13 [History] Calcium Carbonate/Vitamin D3 [Calcium 500-Vit D3 200 Caplet] 1 each PO BEDTIME 02/16/13 [History] Levothyroxine Sodium [Synthroid] 125 mcg PO QAM 02/16/13 [History] Lisinopril 20 mg PO QPM 02/16/13 [History] Multivitamin [Multi-Vitamin Daily] 1 each PO BEDTIME 02/16/13 [History] Omeprazole [Prilosec] 20 mg PO QPM 02/16/13 [History] amLODIPine [Norvasc] 5 mg PO QAM 02/16/13 [History] Forms: ED Department Discharge Referrals: Fuentes Cisse PA [Primary Care Provider] - - Discharge Summary/Plan Comment DC Time >30 min.: No Total # of Minutes for Discharge Time: 15 - Patient Data Vitals - Most Recent: Last Vital Signs Temp 98.5 F 11/25/20 01:06 Pulse 84 11/25/20 01:30 Resp 35 H 11/25/20 01:30 BP 114/33 L 11/25/20 01:30 Pulse Ox 45 L 11/26/20 01:07 Weight - Most Recent: 250 lb I&O - Last 24 hours: Intake & Output 11/25/20 11/26/20 11/26/20 22:59 06:59 14:59 Output Total 75 30 Balance -75 -30 TOM Results - Last 24 hrs: Microbiology 11/25/20 00:10 Aerobic Blood Culture - Preliminary Blood - Venous NO GROWTH AFTER 1 DAY Anaerobic Blood Culture - Preliminary NO GROWTH AFTER 1 DAY Med Orders - Current: Current Medications Acetaminophen (Acetaminophen 650 Mg Supp) 650 mg RECTAL Q4H PRN PRN Reason: Pain (mild 1-3) Glycopyrrolate (Glycopyrrolate 0.2 Mg/Ml Sdv) 0.2 mg IVPUSH Q4H PRN PRN Reason: Secretions Last Admin: 11/26/20 05:46 Dose: 0.2 mg Documented by: Hydromorphone HCl (Hydromorphone 1 Mg/Ml Syringe) 1 mg IVPUSH Q2H PRN PRN Reason: Pain Last Admin: 11/26/20 03:27 Dose: 1 mg Documented by: Lorazepam (Lorazepam 2 Mg/Ml Sdv) 4 mg IVPUSH Q1H PRN PRN Reason: Other Last Admin: 11/26/20 07:29 Dose: 4 mg Documented by: Discontinued Medications Acetaminophen (Acetaminophen 500 Mg Tab) 1,000 mg PO ONETIME ONE Stop: 11/25/20 00:00 Last Admin: 11/25/20 00:05 Dose: 500 mg Documented by: Acetaminophen (Acetaminophen 500 Mg Tab) 500 mg PO ONETIME ONE Stop: 11/25/20 00:43 Last Admin: 11/25/20 00:44 Dose: 500 mg Documented by: Albuterol/Ipratropium (Albuterol/Ipratropium 3.0-0.5 Mg/3 Ml Neb Soln) 3 ml NEB ONETIME ONE Stop: 11/24/20 23:59 Last Admin: 11/24/20 23:50 Dose: 3 ml Documented by: Albuterol/Ipratropium (Albuterol/Ipratropium 3.0-0.5 Mg/3 Ml Neb Soln) 3 ml NEB Q4H PRN PRN Reason: Shortness Of Breath/wheezing Dexamethasone (Dexamethasone 10 Mg/Ml Sdv) 6 mg IVPUSH ONETIME ONE Stop: 11/24/20 23:59 Last Admin: 11/25/20 00:05 Dose: 6 mg Documented by: Sodium Chloride (Normal Saline) 1,000 mls @ 1,000 mls/hr IV BOLUS ONE; Protocol Stop: 11/25/20 00:54 Last Admin: 11/25/20 00:52 Dose: Not Given Documented by: Sodium Chloride (Normal Saline) 1,000 mls @ 999 mls/hr IV .BOLUS ONE Stop: 11/25/20 01:48 Last Admin: 11/25/20 00:53 Dose: Not Given Documented by: Sodium Chloride (Normal Saline) 1,000 mls @ 150 mls/hr IV ASDIRECTED ONE Stop: 11/25/20 07:27 Last Infusion: 11/25/20 01:15 Dose: 500 mls/hr Documented by: Dextrose/Sodium Chloride (Dextrose 5%-1/2 Ns) 1,000 mls @ 125 mls/hr IV ASDIRECTED AIDE Last Admin: 11/25/20 03:08 Dose: 125 mls/hr Documented by: Lorazepam (Lorazepam 2 Mg/Ml Sdv) 1 mg IVPUSH ONETIME ONE Stop: 11/25/20 00:54 Last Admin: 11/25/20 01:00 Dose: 1 mg Documented by: Lorazepam (Lorazepam 2 Mg/Ml Sdv) 1 mg IV Q1H PRN PRN Reason: Nausea/Vomiting Last Admin: 11/25/20 04:13 Dose: 1 mg Documented by: Lorazepam (Lorazepam 2 Mg/Ml Sdv) 2 mg IVPUSH Q1H PRN PRN Reason: Other Last Admin: 11/25/20 11:43 Dose: 2 mg Documented by: Sodium Chloride (Sodium Chloride 0.9% 10 Ml Syringe) 10 ml FLUSH Q8HR PRN PRN Reason: keep vein open
== END 2020-11-26 09:38 | disposition expired | DRG 951 ==
LOC: KA.ED 23:45 → KA.MS 11-25 01:05 → UNDOADMIN 11-25 01:10 → KA.MS 11-25 01:10
PROVIDERS: ADMIT Physician Assistant Medical; ATTEND Internal Medicine
PROC: 8E0ZXY6 Isolation (ICD-10-PCS; principal; 2020-11-24)
DX: Z51.5 Encounter for palliative care (principal); J12.89 Other viral pneumonia; U07.1 COVID-19; J12.82 Pneumonia due to coronavirus disease 2019; J96.01 Acute respiratory failure with hypoxia; Z66 Do not resuscitate; H54.7 Unspecified visual loss; I10 Essential (primary) hypertension; H26.9 Unspecified cataract; Z88.6 Allergy status to analgesic agent; K21.9 Gastro-esophageal reflux disease without esophagitis; E03.9 Hypothyroidism, unspecified; E86.0 Dehydration; Z79.82 Long term (current) use of aspirin; Z79.890 Hormone replacement therapy; Z79.899 Other long term (current) drug therapy; Z88.5 Allergy status to narcotic agent; Z88.8 Allergy status to other drugs, medicaments and biological substances; I25.2 Old myocardial infarction; Z86.73 Personal history of transient ischemic attack (TIA), and cerebral infarction without residual deficits
CPT/HCPCS: 36415; 71045; 80053; 81001; 83605; 83880; 84484; 85025; 85379; 87040; 93005; 94640; A9270 ×2; J1100; J2060; J7030; 51702; 96374; 96375; 99223; 99233; 99285-25; J1170; J3490; J7042; J7620-GY